=== PATIENT | female | born 1995 | race Two or more races ===

== ENCOUNTER 2022-10-27 12:21 | Emergency (ER) | payer OTHER ==
[~2022-10-27] VITALS: Ht 160 cm; Wt 69.9 kg
== END 2022-10-27 15:09 | disposition home or self-care (01) ==
LOC: ER 12:21
DX: T78.40XA Allergy, unspecified, initial encounter (principal)

== ENCOUNTER 2023-04-08 12:05 | Outpatient (CLI) | payer OTHER | END 2023-04-08 13:12 | disposition home or self-care (01) | LOC: NST 12:05 | PROVIDERS: ATTEND Obstetrics & Gynecology | DX: Z34.83 Encounter for supervision of other normal pregnancy, third trimester (principal) ==

== ENCOUNTER 2023-04-11 09:32 | Outpatient (CLI) | payer OTHER | END 2023-04-11 11:40 | disposition home or self-care (01) | LOC: NST 09:32 | PROVIDERS: ATTEND Obstetrics & Gynecology | DX: Z34.83 Encounter for supervision of other normal pregnancy, third trimester (principal) ==

== ENCOUNTER 2023-04-15 09:49 | Outpatient (CLI) | payer OTHER | END 2023-04-15 10:47 | disposition home or self-care (01) | LOC: NST 09:49 | PROVIDERS: ATTEND Obstetrics & Gynecology | DX: Z34.83 Encounter for supervision of other normal pregnancy, third trimester (principal) ==